=== PATIENT | female | born 1950 | race Caucasian/White ===

== ENCOUNTER 2018-04-13 15:01 | Inpatient (IN) | payer MEDICARE ==
[~2018-04-13] VITALS: Ht 172.7 cm; Wt 145.0 kg
--- NOTE | ~2018-04-13 | EC ---
PATIENT:RUSLAN BENTLEY DATE OF SERVICE: 04/13/18 SEX: F MEDICAL RECORD: [id number] DATE OF : [birth year] LOCATION:D. D.212 AGE OF PATIENT: 68 ADMISSION DATE: 04/13/18 REFERRING PHYSICIAN: INTERPRETING PHYSICIAN: DIONTE ROY MD ECHOCARDIOGRAM REPORT ECHO CHARGES 4 ECHO COMPLETE Date: 04/14/18 CLINICAL DIAGNOSIS: CHF ECHOCARDIOGRAPHIC MEASUREMENTS (adult normal given) AC root (d.<3.7cm) cm LV Septum d (<1.2 cm> 1.8 cm Valve Excursion cm LV Septum (systole) 2.1 cm Left Atria (s.<4.0cm> cm LVPW d(<1.2cm) 1.7 cm RV (d.<2.3cm) 5.5 cm LVPW (sytole) 1.9 cm LV diastole(<5.6CM) 7.2 cm MV E-F(>70mm/sec) cm LV systole 5.9 cm LVOT Diameter 2.5 cm MV exc.(>10mm) cm Est.ejection fraction (50-75%) % DOPPLER: LVIT cm/sec A 42 cm/sec E 54 cm/sec LA cm/sec RVSP 35.7 mmHg LVOT 102 cm/sec AOP1/2T m/s Asc. Ao 164 cm/sec RVOT 95 cm/sec RA cm/sec PA 139 cm/sec AV Gradient Peak 10.7 mmHg AV Mean 7.6 mmHg AV Area 4.0 cm MV Gradient Peak 1.4 mmHg MV Mean 0.8 mmHg MV Area cm COMMENTS: Search Coordinator: Raquel SANABRIA Coffee Farmer: 3 Dr. Stevens TAPE# PACS Pericardial Effusion N DATE OF SERVICE: Adequate 2D, color flow, spectral Doppler, and M-mode. LVH is present. LV internal dimensions are normal. LV is mildly globally hypo with mild reduced EF, estimated EF 30% to 35%. Aortic valve sclerosis without stenosis by Doppler interrogation. Left atrium is normal. Mitral valve shows no prolapse. Mild MR. Right-sided chambers grossly normal. Trace TR. TRANSINT:[id number] Voice Confirmation ID: [id number] DOCUMENT ID: [id number] ECHOCARDIOGRAM REPORT [id number] RUSLAN BENTLEY DIONTE ROY MD at 0843 CC: [id number] DICTATION DATE: 04/15/18 1239 SENIOR JAVA SOFTWARE ENGINEER: 04/15/18 1252 ADM IN [facility] [address] [id number]
--- NOTE | ~2018-04-13 | OP ---
PATIENT NAME: RUSLAN BENTLEY MEDICAL RECORD: [id number] :48 LOCATION:D.CVI D.CV07 ADMISSION DATE:04/13/18 SURGEON: LEA MURDOCK MD DATE OF OPERATION: 04/18/2018 PREOPERATIVE DIAGNOSES: 1. Lack of IV access. 2. Cellulitis, in need of IV access for IV antibiotics. 3. Altered mental status. 4. Congestive heart failure. POSTOPERATIVE DIAGNOSES: 1. Lack of IV access. 2. Cellulitis, in need of IV access for IV antibiotics. 3. Altered mental status. 4. Congestive heart failure. PROCEDURE: Insertion of right triple-lumen supraclavicular subclavian central venous line placement. SURGEON: Lea Murdock MD RAILROAD ENGINEER: None. BLOOD LOSS: Minimal. ANESTHESIA: Local. COMPLICATIONS: None. This operation was made difficult due to the fact the patient was combative during the procedure. The entire procedure was performed in the presence of a nurse. OPERATIVE COURSE: The patient was seen in her ICU room. She was positioned in the Trendelenburg position. The right neck and right upper chest were sterilely prepped and draped. A local anesthetic was used to infiltrate the skin and subcutaneous tissues at the base of the right neck. The right subclavian vein was accessed in an antegrade supraclavicular technique. A guidewire passed easily. A small skin pawel was accomplished. A vessel dilator was used to dilate the subcutaneous tract. A 16-cm triple-lumen central venous catheter was inserted to the hub. It was sutured in place times 3. All lumens flushed easily and aspirated dark, nonpulsatile blood. A stat portable chest x-ray is pending. TRANSINT:[id number] Voice Confirmation ID: [id number] DOCUMENT ID: [id number] OPERATIVE REPORT [id number] MCRUSLAN REILLY LEA MURDOCK MD at 2120 CC: [id number] DICTATION DATE: 04/18/182147 FILM PRINTER: 04/19/18 0027 ADM IN [facility] [address] [place] [address]
[2018-04-13] MEDS ORDERED: CYMBALTA60 MG PO (15:13)
[2018-04-13] MEDS ORDERED: [UNRECOGNIZED DRUG - REMARK] (15:14)
[2018-04-13] MEDS ORDERED: LASIX40 MG PO (15:14)
[2018-04-13 17:54] VITALS: BP 151/98
[2018-04-13] MEDS ORDERED: DIOVAN320 MG PO (18:16)
[2018-04-13 21:59] VITALS: BP 135/67
[2018-04-14 04:42] LABS: BASOPHILS 0.1 % (0-2); EOSINOPHILS 0 % (0-7); HEMATOCRIT 46.2 % (36.0-48.0); HEMOGLOBIN 14.7 g/dL (12-16); IMMATURE GRANULOCYTES 0.3 % (0-5); LYMPHOCYTES 4.3 % (15-50); MCH 29.1 pg (26.0-34.0); MCHC 31.8 g/dL (31.0-37.0); MCV 91.3 fL (80.0-100.0); MEAN PLATELET VOLUME 10.2 fL (7.4-10.4); MONOCYTES 8.3 % (2-11); PLATELET COUNT 221 10x3/uL (130-400); RBC 5.06 10x6/uL (4.00-5.40); RDW 16.8 % (11.5-14.5); WBC 11.6 10x3/uL (4.8-10.8)
[2018-04-14 05:07] LABS: ALBUMIN 2.6 g/dL (3.4-5.0); ANION GAP 7.8 mmol/L (8-16); BILIRUBIN - TOTAL 1.72 mg/dL (0.2-1.3); CALCIUM 7.9 mg/dL (8.5-10.1); CARBON DIOXIDE 37.8 mmol/L (21.0-32.0); CREATININE - SERUM 1.8 mg/dL (0.6-1.3); POTASSIUM - SERUM 3.6 mmol/L (3.5-5.1); PROTEIN - SERUM 6.3 g/dL (6.4-8.2)
[2018-04-14 07:16] VITALS: BP 122/67
[2018-04-14 08:31] VITALS: BP 132/66
[2018-04-14 11:13] VITALS: BP 124/58
[2018-04-14 13:44] VITALS: BMI 40.9
[2018-04-14 14:53] VITALS: BP 117/60
[2018-04-14 22:07] VITALS: BP 109/56
[2018-04-15 06:19] LABS: BASOPHILS 0.1 % (0-2); EOSINOPHILS 0.9 % (0-7); HEMATOCRIT 45.1 % (36.0-48.0); HEMOGLOBIN 14.4 g/dL (12-16); IMMATURE GRANULOCYTES 0.6 % (0-5); LYMPHOCYTES 9.6 % (15-50); MCH 29.6 pg (26.0-34.0); MCHC 31.9 g/dL (31.0-37.0); MCV 92.8 fL (80.0-100.0); MEAN PLATELET VOLUME 10.5 fL (7.4-10.4); MONOCYTES 13.7 % (2-11); NEUTROPHILS 75.1 % (40-80); PLATELET COUNT 223 10x3/uL (130-400); RBC 4.86 10x6/uL (4.00-5.40); WBC 9.1 10x3/uL (4.8-10.8)
[2018-04-15 06:21] VITALS: BP 141/102
[2018-04-15 06:48] LABS: ANION GAP 4.3 mmol/L (8-16); CALCIUM 8.2 mg/dL (8.5-10.1); CARBON DIOXIDE 39.6 mmol/L (21.0-32.0); CREATININE - SERUM 1.9 mg/dL (0.6-1.3); POTASSIUM - SERUM 3.9 mmol/L (3.5-5.1)
[2018-04-15 07:48] VITALS: BP 142/102
[2018-04-15 10:42] VITALS: BP 136/84
[2018-04-15 14:43] LABS: APPEARANCE HAZY (CLEAR); BILIRUBIN NEGATIVE (NEGATIVE); COLOR AMBER (YELLOW); GLUCOSE NEGATIVE (NEGATIVE); KETONE NEGATIVE (NEGATIVE); NITRITE NEGATIVE (NEGATIVE); PROTEIN 1+ mg/dL (NEGATIVE); UROBILINOGEN NORMAL (NORMAL)
[2018-04-15 14:45] LABS: BACTERIA FEW /hpf (NONE SEEN); EPITHELIAL CELLS 0-5 /hpf (0-5); RED CELLS - URINE >50 /hpf (0-5); WHITE CELLS - URINE 0-5 /hpf (0-5)
[2018-04-15 15:45] VITALS: BP 132/78
[2018-04-15 21:20] VITALS: BP 107/63
[2018-04-16 05:53] VITALS: BP 144/98
[2018-04-16 06:36] LABS: ANION GAP 8.6 mmol/L (8-16); CARBON DIOXIDE 37.2 mmol/L (21.0-32.0); CREATININE - SERUM 1.8 mg/dL (0.6-1.3); POTASSIUM - SERUM 3.8 mmol/L (3.5-5.1)
[2018-04-16 06:39] LABS: BASOPHILS 0.1 % (0-2); EOSINOPHILS 0.8 % (0-7); HEMATOCRIT 44.6 % (36.0-48.0); HEMOGLOBIN 13.9 g/dL (12-16); IMMATURE GRANULOCYTES 0.4 % (0-5); LYMPHOCYTES 13.2 % (15-50); MCH 28.9 pg (26.0-34.0); MCHC 31.2 g/dL (31.0-37.0); MCV 92.7 fL (80.0-100.0); MEAN PLATELET VOLUME 10.9 fL (7.4-10.4); NEUTROPHILS 71.5 % (40-80); PLATELET COUNT 211 10x3/uL (130-400); RBC 4.81 10x6/uL (4.00-5.40); RDW 16.8 % (11.5-14.5); WBC 7.6 10x3/uL (4.8-10.8)
[2018-04-16 07:56] VITALS: BP 203/175
[2018-04-16 12:27] VITALS: BP 161/80
[2018-04-16 16:09] VITALS: BP 175/95
[2018-04-16 20:38] VITALS: BP 132/78
[2018-04-17 04:00] VITALS: BP 214/93
[2018-04-17 05:07] LABS: BASOPHILS 0.3 % (0-2); HEMATOCRIT 43.1 % (36.0-48.0); HEMOGLOBIN 13.6 g/dL (12-16); IMMATURE GRANULOCYTES 0.4 % (0-5); MCH 28.8 pg (26.0-34.0); MCHC 31.6 g/dL (31.0-37.0); MCV 91.1 fL (80.0-100.0); MONOCYTES 15.7 % (2-11); NEUTROPHILS 72.6 % (40-80); PLATELET COUNT 193 10x3/uL (130-400); RBC 4.73 10x6/uL (4.00-5.40); RDW 16.2 % (11.5-14.5); WBC 7.8 10x3/uL (4.8-10.8)
[2018-04-17 05:22] LABS: CALCIUM 8.1 mg/dL (8.5-10.1); CARBON DIOXIDE 37.8 mmol/L (21.0-32.0); CREATININE - SERUM 1.5 mg/dL (0.6-1.3); POTASSIUM - SERUM 3.8 mmol/L (3.5-5.1)
[2018-04-17 07:34] VITALS: BP 169/73
[2018-04-17 12:49] VITALS: BP 169/75
[2018-04-17 16:50] VITALS: BP 170/73
[2018-04-17 21:16] VITALS: BP 138/72
[2018-04-18] VITALS (11 sets, daily range): BP systolic 87–166; BP diastolic 43–97
[2018-04-18 06:18] LABS: BASOPHILS 0.1 % (0-2); EOSINOPHILS 0.1 % (0-7); HEMATOCRIT 47.7 % (36.0-48.0); HEMOGLOBIN 15.4 g/dL (12-16); IMMATURE GRANULOCYTES 0.4 % (0-5); LYMPHOCYTES 5.5 % (15-50); MCH 29.8 pg (26.0-34.0); MCHC 32.3 g/dL (31.0-37.0); MCV 92.4 fL (80.0-100.0); MEAN PLATELET VOLUME 10.4 fL (7.4-10.4); MONOCYTES 7.8 % (2-11); NEUTROPHILS 86.1 % (40-80); RBC 5.16 10x6/uL (4.00-5.40); RDW 16.4 % (11.5-14.5); WBC 8.4 10x3/uL (4.8-10.8)
[2018-04-18 06:20] LABS: PLATELET COUNT 232 10x3/uL (130-400)
[2018-04-18 06:36] LABS: ANION GAP 8.1 mmol/L (8-16); CALCIUM 8.8 mg/dL (8.5-10.1); CARBON DIOXIDE 39.6 mmol/L (21.0-32.0); CREATININE - SERUM 1.7 mg/dL (0.6-1.3); MAGNESIUM - SERUM 2.1 mg/dL (1.8-2.4); PHOSPHOROUS 3.4 mg/dL (2.5-4.9)
[2018-04-18 06:51] LABS: POTASSIUM - SERUM 4.7 mmol/L (3.5-5.1)
[2018-04-19] VITALS (23 sets, daily range): BP systolic 115–178; BP diastolic 44–84
[2018-04-19 03:46] LABS: BASOPHILS 0.1 % (0-2); EOSINOPHILS 0.2 % (0-7); HEMATOCRIT 44.3 % (36.0-48.0); HEMOGLOBIN 14.1 g/dL (12-16); IMMATURE GRANULOCYTES 0.2 % (0-5); LYMPHOCYTES 8.1 % (15-50); MCH 29.1 pg (26.0-34.0); MCHC 31.8 g/dL (31.0-37.0); MCV 91.3 fL (80.0-100.0); MEAN PLATELET VOLUME 10.4 fL (7.4-10.4); MONOCYTES 14.4 % (2-11); PLATELET COUNT 226 10x3/uL (130-400); RBC 4.85 10x6/uL (4.00-5.40); RDW 16.2 % (11.5-14.5); WBC 8.2 10x3/uL (4.8-10.8)
[2018-04-19 03:58] LABS: ANION GAP 5.7 mmol/L (8-16); CALCIUM 8.6 mg/dL (8.5-10.1); CREATININE - SERUM 1.8 mg/dL (0.6-1.3); POTASSIUM - SERUM 4.6 mmol/L (3.5-5.1)
[2018-04-19 04:04] LABS: CARBON DIOXIDE 40.9 mmol/L (21.0-32.0)
[2018-04-19 08:17] LABS: IMMUNOGLOBULIN A 251 mg/dL (87-352); IMMUNOGLOBULIN G 971 mg/dL (700-1600)
[2018-04-20] VITALS (24 sets, daily range): BP systolic 116–169; BP diastolic 47–87
[2018-04-20 04:51] LABS: BASOPHILS 0.1 % (0-2); EOSINOPHILS 0.3 % (0-7); HEMATOCRIT 43.4 % (36.0-48.0); HEMOGLOBIN 13.5 g/dL (12-16); IMMATURE GRANULOCYTES 0.2 % (0-5); LYMPHOCYTES 7.1 % (15-50); MCH 28.9 pg (26.0-34.0); MCHC 31.1 g/dL (31.0-37.0); MCV 92.9 fL (80.0-100.0); MEAN PLATELET VOLUME 10.2 fL (7.4-10.4); MONOCYTES 11.8 % (2-11); NEUTROPHILS 80.5 % (40-80); PLATELET COUNT 206 10x3/uL (130-400); RBC 4.67 10x6/uL (4.00-5.40); RDW 16.1 % (11.5-14.5); WBC 8.6 10x3/uL (4.8-10.8)
[2018-04-20 05:04] LABS: ALBUMIN 2.7 g/dL (3.4-5.0); ANION GAP 2.5 mmol/L (8-16); BILIRUBIN - TOTAL 0.83 mg/dL (0.2-1.3); CALCIUM 8.3 mg/dL (8.5-10.1); CREATININE - SERUM 1.6 mg/dL (0.6-1.3); POTASSIUM - SERUM 4.4 mmol/L (3.5-5.1); PROTEIN - SERUM 5.9 g/dL (6.4-8.2)
[2018-04-20 05:22] LABS: CARBON DIOXIDE 43.9 mmol/L (21.0-32.0)
[2018-04-21] VITALS (15 sets, daily range): BP systolic 99–159; BP diastolic 44–90; Ht 172.7 cm; Wt 145.0 kg
[2018-04-21 06:29] LABS: BASOPHILS 0.1 % (0-2); EOSINOPHILS 0.9 % (0-7); HEMATOCRIT 41.5 % (36.0-48.0); HEMOGLOBIN 12.9 g/dL (12-16); IMMATURE GRANULOCYTES 0.1 % (0-5); LYMPHOCYTES 10.6 % (15-50); MCH 28.5 pg (26.0-34.0); MCHC 31.1 g/dL (31.0-37.0); MCV 91.6 fL (80.0-100.0); MEAN PLATELET VOLUME 10.7 fL (7.4-10.4); MONOCYTES 11.6 % (2-11); NEUTROPHILS 76.7 % (40-80); PLATELET COUNT 206 10x3/uL (130-400); RBC 4.53 10x6/uL (4.00-5.40); RDW 16.1 % (11.5-14.5); WBC 8.6 10x3/uL (4.8-10.8)
[2018-04-21 06:45] LABS: ALBUMIN 2.5 g/dL (3.4-5.0); ANION GAP 4.5 mmol/L (8-16); BILIRUBIN - TOTAL 0.83 mg/dL (0.2-1.3); CALCIUM 8.1 mg/dL (8.5-10.1); CARBON DIOXIDE 39.2 mmol/L (21.0-32.0); CREATININE - SERUM 1.5 mg/dL (0.6-1.3); MAGNESIUM - SERUM 2.2 mg/dL (1.8-2.4); PHOSPHOROUS 2.3 mg/dL (2.5-4.9); PROTEIN - SERUM 5.5 g/dL (6.4-8.2)
[2018-04-21 06:46] LABS: POTASSIUM - SERUM 3.7 mmol/L (3.5-5.1)
[2018-04-22] VITALS: BP 116/57
[2018-04-22 04:00] VITALS: BP 107/65
[2018-04-22 06:56] LABS: BASOPHILS 0.2 % (0-2); EOSINOPHILS 0.9 % (0-7); HEMATOCRIT 41.6 % (36.0-48.0); IMMATURE GRANULOCYTES 0.1 % (0-5); LYMPHOCYTES 13.2 % (15-50); MCH 28.3 pg (26.0-34.0); MCHC 31.3 g/dL (31.0-37.0); MCV 90.6 fL (80.0-100.0); MEAN PLATELET VOLUME 10.6 fL (7.4-10.4); MONOCYTES 12.6 % (2-11); PLATELET COUNT 188 10x3/uL (130-400); RBC 4.59 10x6/uL (4.00-5.40); RDW 16.1 % (11.5-14.5); WBC 8.2 10x3/uL (4.8-10.8)
[2018-04-22 07:07] LABS: ANION GAP 2.4 mmol/L (8-16); CARBON DIOXIDE 38.1 mmol/L (21.0-32.0); CREATININE - SERUM 1.6 mg/dL (0.6-1.3); POTASSIUM - SERUM 3.5 mmol/L (3.5-5.1)
[2018-04-22 08:17] VITALS: BP 117/56
[2018-04-22 11:13] VITALS: BP 119/74
[2018-04-22 16:22] VITALS: BP 141/67
[2018-04-22 20:00] VITALS: BP 114/68
[2018-04-23 04:00] VITALS: BP 133/68
[2018-04-23 05:42] LABS: BASOPHILS 0.2 % (0-2); HEMATOCRIT 41.8 % (36.0-48.0); HEMOGLOBIN 13.3 g/dL (12-16); IMMATURE GRANULOCYTES 0.2 % (0-5); LYMPHOCYTES 11.4 % (15-50); MCH 28.9 pg (26.0-34.0); MCHC 31.8 g/dL (31.0-37.0); MCV 90.7 fL (80.0-100.0); MEAN PLATELET VOLUME 10.7 fL (7.4-10.4); MONOCYTES 13.3 % (2-11); NEUTROPHILS 73.9 % (40-80); PLATELET COUNT 170 10x3/uL (130-400); RBC 4.61 10x6/uL (4.00-5.40); RDW 16.2 % (11.5-14.5); WBC 8.7 10x3/uL (4.8-10.8)
[2018-04-23 06:07] LABS: ANION GAP 6.2 mmol/L (8-16); CALCIUM 8.2 mg/dL (8.5-10.1); CARBON DIOXIDE 35.3 mmol/L (21.0-32.0); CREATININE - SERUM 1.5 mg/dL (0.6-1.3); POTASSIUM - SERUM 3.5 mmol/L (3.5-5.1)
[2018-04-23 09:18] VITALS: BP 137/73
[2018-04-23 11:45] VITALS: BP 127/65
[2018-04-23 15:28] LABS: IMMUNOGLOBULIN E 336 IU/mL (0-100)
[2018-04-23 16:47] VITALS: BP 129/58
[2018-04-23 19:00] VITALS: BP 153/70
[2018-04-23 20:00] VITALS: BP 153/70
[2018-04-24 04:00] VITALS: BP 145/62
[2018-04-24 06:13] LABS: BASOPHILS 0.3 % (0-2); EOSINOPHILS 1.4 % (0-7); HEMATOCRIT 40.3 % (36.0-48.0); IMMATURE GRANULOCYTES 0.3 % (0-5); LYMPHOCYTES 14.4 % (15-50); MCH 29.1 pg (26.0-34.0); MCHC 32.3 g/dL (31.0-37.0); MCV 90.4 fL (80.0-100.0); MEAN PLATELET VOLUME 11.4 fL (7.4-10.4); MONOCYTES 12.2 % (2-11); NEUTROPHILS 71.4 % (40-80); PLATELET COUNT 151 10x3/uL (130-400); RBC 4.46 10x6/uL (4.00-5.40); RDW 16.2 % (11.5-14.5); WBC 9.1 10x3/uL (4.8-10.8)
[2018-04-24 07:04] LABS: ANION GAP 7.5 mmol/L (8-16); CALCIUM 8.4 mg/dL (8.5-10.1); CARBON DIOXIDE 34.1 mmol/L (21.0-32.0); CREATININE - SERUM 1.7 mg/dL (0.6-1.3); POTASSIUM - SERUM 3.6 mmol/L (3.5-5.1)
[2018-04-24 07:59] VITALS: BP 166/76
[2018-04-24 11:21] VITALS: BP 173/68
[2018-04-24 15:24] VITALS: BP 121/60
[2018-04-24 20:00] VITALS: BP 136/61
[2018-04-25 04:00] VITALS: BP 149/69
[2018-04-25 04:52] LABS: BASOPHILS 0.2 % (0-2); EOSINOPHILS 1.4 % (0-7); HEMATOCRIT 40.1 % (36.0-48.0); HEMOGLOBIN 12.8 g/dL (12-16); IMMATURE GRANULOCYTES 0.2 % (0-5); LYMPHOCYTES 13.6 % (15-50); MCH 28.6 pg (26.0-34.0); MCHC 31.9 g/dL (31.0-37.0); MCV 89.7 fL (80.0-100.0); MONOCYTES 12.8 % (2-11); NEUTROPHILS 71.8 % (40-80); PLATELET COUNT 140 10x3/uL (130-400); RBC 4.47 10x6/uL (4.00-5.40); RDW 16.2 % (11.5-14.5); WBC 9.6 10x3/uL (4.8-10.8)
[2018-04-25 05:01] LABS: ANION GAP 4.9 mmol/L (8-16); CALCIUM 8.3 mg/dL (8.5-10.1); CARBON DIOXIDE 37.9 mmol/L (21.0-32.0); CREATININE - SERUM 1.6 mg/dL (0.6-1.3); POTASSIUM - SERUM 3.8 mmol/L (3.5-5.1)
[2018-04-25 07:59] VITALS: BP 155/82
[2018-04-25 11:25] VITALS: BP 133/64
[2018-04-25 14:57] VITALS: BP 148/66
[2018-04-25 16:46] LABS: PROTEIN - BODY FLUID 1.3 G/DL
[2018-04-25 19:19] LABS: MACROPHAGES BF 9 %; MESOTHELIALS BF 3 %; NEUT - BF 6 %
[2018-04-25 21:01] VITALS: BP 127/48
[2018-04-26 01:32] VITALS: BP 132/72
[2018-04-26 05:32] LABS: BASOPHILS 0.5 % (0-2); EOSINOPHILS 1.7 % (0-7); HEMATOCRIT 38.4 % (36.0-48.0); HEMOGLOBIN 12.2 g/dL (12-16); IMMATURE GRANULOCYTES 0.1 % (0-5); MCH 28.8 pg (26.0-34.0); MCHC 31.8 g/dL (31.0-37.0); MCV 90.6 fL (80.0-100.0); MONOCYTES 13.8 % (2-11); NEUTROPHILS 64.9 % (40-80); PLATELET COUNT 152 10x3/uL (130-400); RBC 4.24 10x6/uL (4.00-5.40); RDW 16.7 % (11.5-14.5); WBC 8.1 10x3/uL (4.8-10.8)
[2018-04-26 05:48] VITALS: BP 107/36
[2018-04-26 05:48] LABS: ANION GAP 6.8 mmol/L (8-16); CALCIUM 8.4 mg/dL (8.5-10.1); CARBON DIOXIDE 37.6 mmol/L (21.0-32.0); CREATININE - SERUM 1.5 mg/dL (0.6-1.3); POTASSIUM - SERUM 3.4 mmol/L (3.5-5.1)
[2018-04-26 21:06] LABS: ACID FAST SMEAR Negative (()); AFB SPECIMEN PROCESSING Not Indicated (())
[2018-04-26 21:20] VITALS: BP 149/69
[2018-04-27 05:59] VITALS: BP 159/81
[2018-04-27 06:31] LABS: BASOPHILS 0.4 % (0-2); EOSINOPHILS 1.6 % (0-7); HEMATOCRIT 39.1 % (36.0-48.0); HEMOGLOBIN 12.3 g/dL (12-16); IMMATURE GRANULOCYTES 0.1 % (0-5); MCH 28.3 pg (26.0-34.0); MCHC 31.5 g/dL (31.0-37.0); MCV 90.1 fL (80.0-100.0); MEAN PLATELET VOLUME 11.2 fL (7.4-10.4); MONOCYTES 16.3 % (2-11); NEUTROPHILS 60.6 % (40-80); PLATELET COUNT 173 10x3/uL (130-400); RBC 4.34 10x6/uL (4.00-5.40); RDW 16.6 % (11.5-14.5); WBC 7.3 10x3/uL (4.8-10.8)
[2018-04-27 07:09] LABS: ALBUMIN 2.6 g/dL (3.4-5.0); ANION GAP 5.4 mmol/L (8-16); BILIRUBIN - TOTAL 0.93 mg/dL (0.2-1.3); CALCIUM 8.4 mg/dL (8.5-10.1); CARBON DIOXIDE 35.3 mmol/L (21.0-32.0); MAGNESIUM - SERUM 1.8 mg/dL (1.8-2.4); POTASSIUM - SERUM 3.7 mmol/L (3.5-5.1); PROTEIN - SERUM 5.9 g/dL (6.4-8.2)
[2018-04-27 07:10] LABS: CREATININE - SERUM 1.1 mg/dL (0.6-1.3)
[2018-04-27 21:04] VITALS: BP 145/88
[2018-04-28 05:09] LABS: BASOPHILS 0.9 % (0-2); EOSINOPHILS 1.3 % (0-7); HEMATOCRIT 38.3 % (36.0-48.0); HEMOGLOBIN 12.1 g/dL (12-16); IMMATURE GRANULOCYTES 0.3 % (0-5); MCH 28.5 pg (26.0-34.0); MCHC 31.6 g/dL (31.0-37.0); MCV 90.3 fL (80.0-100.0); MEAN PLATELET VOLUME 10.8 fL (7.4-10.4); MONOCYTES 21.2 % (2-11); NEUTROPHILS 55.3 % (40-80); PLATELET COUNT 172 10x3/uL (130-400); RBC 4.24 10x6/uL (4.00-5.40); RDW 16.6 % (11.5-14.5); WBC 6.9 10x3/uL (4.8-10.8)
[2018-04-28 05:38] LABS: ALBUMIN 2.6 g/dL (3.4-5.0); ANION GAP 6.3 mmol/L (8-16); BILIRUBIN - TOTAL 0.8 mg/dL (0.2-1.3); CALCIUM 8.8 mg/dL (8.5-10.1); CARBON DIOXIDE 38.4 mmol/L (21.0-32.0); CREATININE - SERUM 1.1 mg/dL (0.6-1.3); MAGNESIUM - SERUM 1.9 mg/dL (1.8-2.4); POTASSIUM - SERUM 3.7 mmol/L (3.5-5.1); PROTEIN - SERUM 5.8 g/dL (6.4-8.2)
[2018-04-28 06:12] VITALS: BP 132/78
[2018-04-28 08:38] VITALS: BP 142/67
[2018-04-28 11:48] VITALS: BP 136/60
[2018-04-28 13:12] LABS: FUNGUS STAIN Final report (())
[2018-04-28 15:56] VITALS: BP 133/107
[2018-04-28 20:00] VITALS: BP 157/85
[2018-04-29 04:00] VITALS: BP 135/75
[2018-04-29 05:37] LABS: BASOPHILS 0.7 % (0-2); EOSINOPHILS 1.3 % (0-7); HEMOGLOBIN 11.8 g/dL (12-16); IMMATURE GRANULOCYTES 0.3 % (0-5); LYMPHOCYTES 20.1 % (15-50); MCH 28.9 pg (26.0-34.0); MCHC 31.9 g/dL (31.0-37.0); MCV 90.5 fL (80.0-100.0); MEAN PLATELET VOLUME 11.1 fL (7.4-10.4); MONOCYTES 22.9 % (2-11); NEUTROPHILS 54.7 % (40-80); PLATELET COUNT 182 10x3/uL (130-400); RBC 4.09 10x6/uL (4.00-5.40); WBC 6.1 10x3/uL (4.8-10.8)
[2018-04-29 06:27] LABS: ALBUMIN 2.6 g/dL (3.4-5.0); ANION GAP 6.5 mmol/L (8-16); BILIRUBIN - TOTAL 0.78 mg/dL (0.2-1.3); CALCIUM 8.7 mg/dL (8.5-10.1); CARBON DIOXIDE 37.3 mmol/L (21.0-32.0); CREATININE - SERUM 1.3 mg/dL (0.6-1.3); MAGNESIUM - SERUM 1.8 mg/dL (1.8-2.4); POTASSIUM - SERUM 3.8 mmol/L (3.5-5.1); PROTEIN - SERUM 5.7 g/dL (6.4-8.2)
[2018-04-29 08:03] VITALS: BP 138/59
[2018-04-29 11:58] VITALS: BP 149/62
[2018-04-29] MEDS ORDERED: BROVANA15 MCG/2 M INH (13:22)
[2018-04-29] MEDS ORDERED: ATROVENT 0.02%2.5 ML UPD (13:23)
[2018-04-29] MEDS ORDERED: ELIQUIS2.5 MG PO (13:24)
[2018-04-29] MEDS ORDERED: PACERONE200 MG PO (13:24)
[2018-04-29] MEDS ORDERED: COREG6.25 MG PO (13:24)
[2018-04-29] MEDS ORDERED: TESSALON PERLE100 MG PO (13:28)
[2018-04-29] MEDS ORDERED: PROTONIX40 MG PO (13:28)
[2018-04-29] MEDS ORDERED: MUCINEX DM ER1 EAC1 PO (13:28)
[2018-04-29] MEDS ORDERED: SINGULAIR10 MG PO (13:28)
[2018-04-29] MEDS ORDERED: PULMICORT0.5 MG/21 UPD (13:28)
[2018-04-29] MEDS ORDERED: FLUTICASONE PRO16 GM NASAL (13:28)
[2018-04-29] MEDS ORDERED: NYSTATIN OINTME15 GM TOPICAL (13:29)
[2018-04-30 14:15] LABS: FUNGUS MYCOLOGY CULTURE Preliminary report (())
== END 2018-04-29 18:26 | DRG 291 ==
LOC: D.ER 15:01 → D.EDHOLD 16:00 → D.M2 16:00 → D.CVICU 16:00 → D.M2 16:18 → D.SDCHOLD 04-14 16:28 → D.M2 04-14 16:29 → D.SDCHOLD 04-14 16:36 → D.M2 04-14 16:37 → D.CVICU 04-18 15:59 → D.SDCHOLD 04-18 16:45 → D.CVICU 04-18 16:46 → D.M2 04-21 22:56
PROVIDERS: Family Medicine; Internal Medicine Nephrology; Internal Medicine Pulmonary Disease; Radiology Diagnostic Radiology
PROC: 02HV33Z Insertion of Infusion Device into Superior Vena Cava, Percutaneous Approach (ICD-10-PCS; 2018-04-18)
PROC: B548ZZA Ultrasonography of Superior Vena Cava, Guidance (ICD-10-PCS; 2018-04-18)
PROC: 5A09557 Assistance with Respiratory Ventilation, Greater than 96 Consecutive Hours, Continuous Positive Airway Pressure (ICD-10-PCS; 2018-04-19)
PROC: 0W9B3ZZ Drainage of Left Pleural Cavity, Percutaneous Approach (ICD-10-PCS; principal; 2018-04-25 15:16)
DX: I11.0 Hypertensive heart disease with heart failure (principal); J96.22 Acute and chronic respiratory failure with hypercapnia; J96.21 Acute and chronic respiratory failure with hypoxia; J15.6 Pneumonia due to other Gram-negative bacteria; J15.212 Pneumonia due to Methicillin resistant Staphylococcus aureus; I48.92 Unspecified atrial flutter; N17.9 Acute kidney failure, unspecified; F17.213 Nicotine dependence, cigarettes, with withdrawal; Z68.41 Body mass index [BMI] 40.0-44.9, adult; J44.1 Chronic obstructive pulmonary disease with (acute) exacerbation; J44.0 Chronic obstructive pulmonary disease with (acute) lower respiratory infection; I50.43 Acute on chronic combined systolic (congestive) and diastolic (congestive) heart failure; I08.3 Combined rheumatic disorders of mitral, aortic and tricuspid valves; E66.01 Morbid (severe) obesity due to excess calories; G47.33 Obstructive sleep apnea (adult) (pediatric); Z85.79 Personal history of other malignant neoplasms of lymphoid, hematopoietic and related tissues

== ENCOUNTER 2018-04-29 17:27 | Inpatient (IN) | payer MEDICARE ==
[~2018-04-29] VITALS: Ht 172.7 cm; Wt 161.5 kg
--- NOTE | ~2018-04-29 | RHP ---
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 HISTORY OF PRESENT ILLNESS: The patient was admitted to the inpatient rehab for neurological condition of CHF myopathy. She is a 68-year-old female patient, who is morbidly obese and she was transferred from [place]. She presented with complaints of 2-3 day history of shortness of breath and swelling in her legs. She was admitted to the acute care hospital with CHF exacerbation, morbid obesity, severe venous stasis dermatitis, atrial flutter, and elevated troponin that was probably a leak secondary to stress. She also had shortness of breath. Chest x-ray on 04/17 showed increased interstitial disease as well as a left lower lobe infiltrate. ABG showed a pH of 7.29, pO2 of 87, pCO2 of 59, and a sat of 85%. She has got a history of CHF, lower extremity venous stasis, chronic kidney disease, morbid obesity, sleep apnea, COPD, hypertension, renal cell carcinoma, status post nephrectomy, multiple myeloma. She was transferred to the ICU on 04/18 due to decreased level of consciousness, respiratory distress. She was transferred back out to the medical floor on 04/21. She continues to require supplemental O2 at times. She has increased amount of shortness of breath with any type of physical activity. She has got proximal muscle weakness with difficulty rising from bed to chair. She has a near complete white-out of her left lung on 04/25 and required a thoracentesis, and she is still requiring O2. She is using BiPAP. Dressing changes to bilateral lower extremities are noted. She has got pain, self-care deficit, impaired mobility. She is on IV daily diuretics. These are all barriers to her discharge home at this time. She lives at home alone, was independent with ADLs and mobility. She is currently set up for mod assist for ADLs and mod assist for mobility. She plans to return home alone at her prior level of functioning after returning from the rehab. Comorbidities include ikwkq-nu-hpkhwee systolic heart failure, pleural effusion, respiratory failure with hypoxia, COPD, left upper lobe hospital-acquired pneumonia, obstructive sleep apnea, mild pulmonary hypertension, allergic rhinitis, atrial flutter/fib. She has got noted elevated troponin secondary to stress leak, qpanz-dd-wxfrers kidney failure which is prerenal, hypertension, lower extremity stasis, tobacco use, history of multiple myeloma and renal cell carcinoma, depression, CHF, venous stasis, and morbid obesity. PAST MEDICAL HISTORY: Significant for hypertension, CHF, COPD, multiple myeloma, kidney cancer, depression, tobacco use, and curvature of the spine. PAST SURGICAL HISTORY: Includes nephrectomy and hysterectomy. ALLERGIES: HYDROCODONE. CURRENT MEDICATIONS: Include DuoNeb updrafts t.i.d., Diovan 320 mg daily, Protonix 40 mg daily, Lasix 40 mg daily, Flonase nasal spray 2 sprays daily, Cymbalta 60 mg daily, carvedilol 6.25 mg b.i.d. with meals, Xopenex updrafts as HISTORY AND PHYSICAL [id number] RUSALN BENTLEY needed, Nystatin topical ointment as needed, Singulair 10 mg at bedtime, Mucinex D 1 tab b.i.d., Pulmicort 0.5 mg b.i.d., Tessalon Perles 100 mg t.i.d. p.r.n. cough, Brovana 15 mcg b.i.d. She is on Eliquis 2.5 mg b.i.d., amiodarone 200 mg b.i.d., and polyethylene glycol 17 grams in 8 ounces of water daily. HABITS: No current alcohol use. The patient does have a history of tobacco use. FAMILY HISTORY: Noncontributory. SOCIAL HISTORY: The patient hopes to return back to [place] and get back to her prior level of functioning. REVIEW OF SYSTEMS: GENERAL: Does complain of weakness and fatigue. HEENT: Does complain of cold, cough, and congestion. CARDIOVASCULAR: Denies any chest pain. LUNGS: Does complain of shortness of breath especially with any type of activity. PHYSICAL EXAMINATION: VITAL SIGNS: Her vital signs at this time are stable, but she is afebrile. GENERAL: A morbidly obese female, in no acute distress upon exam. HEENT: Normocephalic and atraumatic. Mucosa moist. NECK: Supple. No lymphadenopathy. LUNGS: Clear in upper gallardo. Does have decreased breath sounds in both bases mainly secondary to her obese nature. HEART: Regular rate and rhythm. ABDOMEN: Benign. EXTREMITIES: Does have noted venous stasis changes to her lower extremities and edema. Dressings in place. NEUROLOGIC: She does have noted diffuse weakness, more proximal than distal. LABORATORY DATA: White count is 5.0, H&H of 11.7 and 36.9, platelet count is 185. Sodium 137, potassium 4.0, BUN and creatinine of 19 and 1.1, and blood sugar is noted to be 85. 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 The patient has potential to make improvement. We will institute the following multidisciplinary therapies including, but not limited to physical, occupational, respiratory, speech, nutritional services, prosthetics and orthotics. Given her complex medical condition and risks for more complications, rehabilitation services cannot be provided at a low level of care such as a jail facility. PLAN: 1. Admit to [facility] for intensive inpatient therapy to include the following disciplines: A. Physical therapy to improve gait, all transfer skills and bed mobility to a modified independent level. B. Occupational therapy to improve activities of daily living to a modified independent level. C. Case management to assist with discharge planning and placement options. D. Nutrition to assist with nutritional needs. HISTORY AND PHYSICAL [id number] RUSLAN BENTLEY. Rehabilitation nursing to assist in monitoring the patient's underlying medical condition and to assist with any type of bowel or bladder management. 2. The patient's current medications and medical care will be continued. 3. The patient will be placed on standard fall precautions. 4. The patient's estimated length of stay is approximately 7-10 days. 5. We will watch her BUN and creatinine closely. It seems to be stable at this time. Would definitely continue with wound care and current therapy to these areas. 6. We will discuss this patient during care team staff meeting this week and we will work on getting her back over to [facility]. TRANSINT:[id number] Voice Confirmation ID: [id number] DOCUMENT ID: [id number] ONEIL notes whether there has been none or any medical/functional change since admission: - No change since prescreen. ONEIL attests patient continues to be appropriate for IRF: - Continues to be appropriate. ARMIDA FANG MD at 1244 CC: [id number] DICTATION DATE: 04/30/18834 WATER ANALYST: 04/30/18904 ADM IN [facility] [address] [id number]
[~2018-04-29 17:27] MED LIST: ATROVENT 0.02%2.5 ML UPD; BROVANA15 MCG/2 M INH; COREG6.25 MG PO; CYMBALTA60 MG PO; DIOVAN320 MG PO; ELIQUIS2.5 MG PO; FLUTICASONE PRO16 GM NASAL; LASIX40 MG PO; MUCINEX DM ER1 EAC1 PO; NYSTATIN OINTME15 GM TOPICAL; PACERONE200 MG PO; PROTONIX40 MG PO; PULMICORT0.5 MG/21 UPD; SINGULAIR10 MG PO; TESSALON PERLE100 MG PO; [UNRECOGNIZED DRUG - REMARK]
[2018-04-29 20:15] VITALS: BP 184/79
[2018-04-29 23:23] VITALS: BP 184/79; BMI 54.2
[2018-04-30 06:35] LABS: EOSINOPHILS 1.7 % (0-7); HEMATOCRIT 36.9 % (36.0-48.0); HEMOGLOBIN 11.7 g/dL (12-16); IMMATURE GRANULOCYTES 0.2 % (0-5); LYMPHOCYTES 21.5 % (15-50); MCH 28.6 pg (26.0-34.0); MCHC 31.7 g/dL (31.0-37.0); MCV 90.2 fL (80.0-100.0); MONOCYTES 23.4 % (2-11); NEUTROPHILS 52.2 % (40-80); PLATELET COUNT 185 10x3/uL (130-400); RBC 4.09 10x6/uL (4.00-5.40); WBC 5.2 10x3/uL (4.8-10.8)
[2018-04-30 06:45] LABS: ANION GAP 5.4 mmol/L (8-16); CALCIUM 8.8 mg/dL (8.5-10.1); CARBON DIOXIDE 38.6 mmol/L (21.0-32.0); CREATININE - SERUM 1.1 mg/dL (0.6-1.3)
[2018-04-30 08:27] VITALS: BP 165/78
[2018-04-30 11:05] VITALS: Ht 172.7 cm; Wt 161.5 kg
[2018-04-30 15:57] VITALS: BP 155/65
[2018-04-30 20:29] VITALS: BP 144/65
[2018-05-01 08:00] VITALS: BP 141/69
[2018-05-01 19:00] VITALS: BP 172/72
[2018-05-02 07:11] LABS: HEMATOCRIT 35.8 % (36.0-48.0); HEMOGLOBIN 11.5 g/dL (12-16); MCH 28.8 pg (26.0-34.0); MCHC 32.1 g/dL (31.0-37.0); MCV 89.5 fL (80.0-100.0); MEAN PLATELET VOLUME 10.5 fL (7.4-10.4); PLATELET COUNT 198 10x3/uL (130-400); RDW 16.8 % (11.5-14.5); WBC 5.2 10x3/uL (4.8-10.8)
[2018-05-02 07:25] LABS: ANION GAP 4.3 mmol/L (8-16); CALCIUM 8.7 mg/dL (8.5-10.1); CARBON DIOXIDE 37.7 mmol/L (21.0-32.0); CREATININE - SERUM 1.2 mg/dL (0.6-1.3)
[2018-05-02 08:00] VITALS: BP 210/93
[2018-05-02 08:28] LABS: LYMPHOCYTES 17 % (15-50); MONOCYTES 17 % (2-11); NEUTROPHILS 62 % (40-80)
[2018-05-02 08:29] LABS: PLATELET ESTIMATE NORMAL; PLATELET MORPHOLOGY GIANT PLTS PRESENT; STOMATOCYTES 2+
[2018-05-02 19:00] VITALS: BP 186/76
[2018-05-03 12:00] VITALS: BP 133/69
[2018-05-03 19:28] VITALS: BP 133/65
[2018-05-04 10:32] VITALS: BP 199/85
[2018-05-04 21:31] VITALS: BP 168/66
[2018-05-05 06:48] LABS: EOSINOPHILS 2.1 % (0-7); HEMATOCRIT 37.4 % (36.0-48.0); HEMOGLOBIN 12.2 g/dL (12-16); IMMATURE GRANULOCYTES 0.2 % (0-5); LYMPHOCYTES 21.7 % (15-50); MCH 29.2 pg (26.0-34.0); MCHC 32.6 g/dL (31.0-37.0); MCV 89.5 fL (80.0-100.0); MEAN PLATELET VOLUME 10.3 fL (7.4-10.4); MONOCYTES 17.3 % (2-11); NEUTROPHILS 57.7 % (40-80); PLATELET COUNT 211 10x3/uL (130-400); RBC 4.18 10x6/uL (4.00-5.40); RDW 17.1 % (11.5-14.5); WBC 6.3 10x3/uL (4.8-10.8)
[2018-05-05 07:07] LABS: ANION GAP 7.5 mmol/L (8-16); CALCIUM 8.8 mg/dL (8.5-10.1); CARBON DIOXIDE 35.5 mmol/L (21.0-32.0); CREATININE - SERUM 1.1 mg/dL (0.6-1.3)
[2018-05-05 08:00] VITALS: BP 197/70
[2018-05-05 20:15] VITALS: BP 179/78
[2018-05-06 08:00] VITALS: BP 200/86
[2018-05-06 17:05] VITALS: BP 173/93
[2018-05-06 19:00] VITALS: BP 168/77
[2018-05-07 05:05] VITALS: BP 176/81
[2018-05-07 06:37] LABS: EOSINOPHILS 2.2 % (0-7); HEMATOCRIT 36.8 % (36.0-48.0); HEMOGLOBIN 11.7 g/dL (12-16); IMMATURE GRANULOCYTES 0.2 % (0-5); LYMPHOCYTES 28.3 % (15-50); MCH 28.6 pg (26.0-34.0); MCHC 31.8 g/dL (31.0-37.0); MEAN PLATELET VOLUME 10.2 fL (7.4-10.4); MONOCYTES 16.6 % (2-11); NEUTROPHILS 51.7 % (40-80); PLATELET COUNT 227 10x3/uL (130-400); RBC 4.09 10x6/uL (4.00-5.40); RDW 17.3 % (11.5-14.5)
[2018-05-07 06:52] LABS: ANION GAP 7.2 mmol/L (8-16); CALCIUM 8.8 mg/dL (8.5-10.1); CARBON DIOXIDE 35.9 mmol/L (21.0-32.0); CREATININE - SERUM 1.2 mg/dL (0.6-1.3); POTASSIUM - SERUM 4.1 mmol/L (3.5-5.1)
[2018-05-07 08:00] VITALS: BP 123/57
[2018-05-07 17:52] VITALS: BP 188/89
[2018-05-07 20:31] VITALS: BP 188/89
[2018-05-08 08:00] VITALS: BP 197/83
[2018-05-08 19:00] VITALS: BP 172/72
[2018-05-09 08:00] VITALS: BP 188/82
[2018-05-09 20:15] VITALS: BP 177/85
[2018-05-10 08:00] VITALS: BP 178/84
[2018-05-10 19:48] VITALS: BP 146/94
[2018-05-11 14:08] VITALS: BP 141/92
[2018-05-11 19:30] VITALS: BP 126/90
[2018-05-12 05:32] LABS: BASOPHILS 0.6 % (0-2); EOSINOPHILS 2.2 % (0-7); HEMATOCRIT 39.1 % (36.0-48.0); HEMOGLOBIN 12.6 g/dL (12-16); IMMATURE GRANULOCYTES 0.1 % (0-5); LYMPHOCYTES 34.7 % (15-50); MCH 29.2 pg (26.0-34.0); MCHC 32.2 g/dL (31.0-37.0); MCV 90.5 fL (80.0-100.0); MEAN PLATELET VOLUME 10.4 fL (7.4-10.4); MONOCYTES 13.2 % (2-11); NEUTROPHILS 49.2 % (40-80); PLATELET COUNT 239 10x3/uL (130-400); RBC 4.32 10x6/uL (4.00-5.40); RDW 17.7 % (11.5-14.5); WBC 6.8 10x3/uL (4.8-10.8)
[2018-05-12 05:42] LABS: ANION GAP 7.1 mmol/L (8-16); CALCIUM 8.6 mg/dL (8.5-10.1); CREATININE - SERUM 1.2 mg/dL (0.6-1.3); POTASSIUM - SERUM 4.1 mmol/L (3.5-5.1)
[2018-05-12 08:00] VITALS: BP 177/121
[2018-05-12 19:00] VITALS: BP 146/92
[2018-05-13 08:00] VITALS: BP 156/78
== END 2018-05-13 11:07 | disposition home health service (06) | DRG 947 ==
LOC: D.REHAB 17:27
PROVIDERS: Emergency Medicine
DX: R53.81 Other malaise (principal); I50.23 Acute on chronic systolic (congestive) heart failure; J18.9 Pneumonia, unspecified organism; J96.21 Acute and chronic respiratory failure with hypoxia; J96.22 Acute and chronic respiratory failure with hypercapnia; I13.0 Hypertensive heart and chronic kidney disease with heart failure and stage 1 through stage 4 chronic kidney disease, or unspecified chronic kidney disease; N17.9 Acute kidney failure, unspecified; I48.92 Unspecified atrial flutter; Z68.43 Body mass index [BMI] 50.0-59.9, adult; N18.9 Chronic kidney disease, unspecified; G72.9 Myopathy, unspecified; J44.9 Chronic obstructive pulmonary disease, unspecified; Y95 Nosocomial condition; G47.33 Obstructive sleep apnea (adult) (pediatric); I27.20 Pulmonary hypertension, unspecified; I48.91 Unspecified atrial fibrillation; F17.200 Nicotine dependence, unspecified, uncomplicated; E66.01 Morbid (severe) obesity due to excess calories; I87.8 Other specified disorders of veins; F32.9 Major depressive disorder, single episode, unspecified; Z85.53 Personal history of malignant neoplasm of renal pelvis